=== PATIENT | male | born 1950 | race Caucasian/White ===

== ENCOUNTER 2018-10-09 16:01 | Inpatient (IN) | payer MEDICARE ==
[~2018-10-09] VITALS: Ht 167.6 cm; Wt 62.1 kg
--- NOTE | 2018-10-09 16:05 | NUR ---
ED Nurse Note: Patient brought into ED by [facility] from [facility], patient has been having poor oral intake and weight loss noted and Dr. Mary, the primary doctor wanted the patient for evaluation,.
[2018-10-09] MEDS ORDERED: ATORVASTATIN CA20 MG ORAL (16:30)
[2018-10-09] MEDS ORDERED: CATAPRES0.1 MG ORAL (16:30)
[2018-10-09] MEDS ORDERED: MULTIVITAMINS1 EAC8 ORAL (16:30)
[2018-10-09] MEDS ORDERED: FERROUS SULFAT325 MG ORAL (16:30)
[2018-10-09] MEDS ORDERED: VITAMIN C500 M1 ORAL (16:30)
[2018-10-09] MEDS ORDERED: NOVOLOG100 UNITS1 (16:30)
[2018-10-09] MEDS ORDERED: DOCUSATE SODIU100 MG ORAL (16:30)
[2018-10-09] MEDS ORDERED: OXYBUTYNIN CHLOR5 M1 ORAL (16:30)
[2018-10-09] MEDS ORDERED: ELIQUIS5 MG PO (16:30)
[2018-10-09] MEDS ORDERED: ACIDOPHILUS1 EAC6 PO (16:30)
--- NOTE | 2018-10-09 17:05 | Diagnostic Imaging Report ---
Indication: Shortness of breath Technique: One view of the chest Comparison: none Findings: There is mild elevation of the right hemidiaphragm. The lungs and pleural spaces are clear. The heart size is normal Impression: Negative
[2018-10-09 17:09] LABS: BASOPHILS % (AUTO) 1.5 % (0.0-2.0); EOSINOPHILS % (AUTO) 1.3 % (0.0-3.0); HEMOGLOBIN 13.7 G/DL (14.2-18.0); LYMPHOCYTES % (AUTO) 30.4 % (20.0-45.0); MEAN CORPUSCULAR VOLUME 82 FL (80-99); MONOCYTES % (AUTO) 7.9 % (1.0-10.0); NEUTROPHILS % (AUTO) 58.9 % (45.0-75.0); PLATELET COUNT 227 K/UL (150-450); RED BLOOD COUNT 5.14 M/UL (4.70-6.10); RED CELL DISTRIBUTION WIDTH 13.6 % (11.6-14.8); WHITE BLOOD COUNT 7.2 K/UL (4.8-10.8)
[2018-10-09 17:10] LABS: APPEARANCE,URINE CLEAR; BILIRUBIN, URINE NEGATIVE (NEGATIVE); GLUCOSE, URINE (UA) NEGATIVE (NEGATIVE); KETONES,URINE NEGATIVE (NEGATIVE); LEUKOCYTE ESTERASE ,URINE 3+ (NEGATIVE); NITRITE,URINE POSITIVE (NEGATIVE); PH,URINE 5 (4.5-8.0); PROTEIN,URINE 1+ (NEGATIVE); UROBILINOGEN,URINE NORMAL MG/DL (0.0-1.0)
[2018-10-09 17:13] LABS: INR 1.1 (0.9-1.1)
[2018-10-09 17:14] LABS: COLOR,URINE YELLOW
[2018-10-09 17:18] LABS: ANION GAP 9 mmol/L (5-15); BLOOD UREA NITROGEN 21 mg/dL (7-18); CALCIUM 9.7 MG/DL (8.5-10.1); CARBON DIOXIDE 31 MMOL/L (21-32); CHLORIDE 104 MMOL/L (98-107); CREATININE 1.3 MG/DL (0.55-1.30); POTASSIUM 4.6 MMOL/L (3.5-5.1); SODIUM 143 MMOL/L (136-145)
[2018-10-09] MEDS ORDERED: cefTRIAXone 1 GM in NS 55 ML IVPB ONE (17:30)
[2018-10-09 17:31] LABS: ALANINE AMINOTRANSFERASE 15 U/L (12-78); ALBUMIN 3.6 G/DL (3.4-5.0); ALBUMIN/GLOBULIN RATIO 0.9 (1.0-2.7); ALKALINE PHOSPHATASE 126 U/L (46-116); ASPARTATE AMINO TRANSFERASE 12 U/L (15-37); BILIRUBIN,TOTAL 0.3 MG/DL (0.2-1.0); CKMB < 0.5 NG/ML (0.0-3.6); CREATINE KINASE 27 U/L (26-308)
[2018-10-09 18:04] VITALS: BP 137/70
[2018-10-09] MEDS ORDERED: ACETAMINOPHEN325 M1 ORAL ×2 (18:07)
--- NOTE | 2018-10-09 18:30 | NUR ---
ED Nurse Note: report given to Franki SHORT at 3E. per Franki RN, the room is not ready and needs 10 minutes
--- NOTE | 2018-10-09 18:55 | NUR ---
NURSE NOTES: Received patient from ER in stable condition. Alert and oriented x2. No complain of pain or distress at this time. Skin intact and dry. IV dressing intact and dry. Belonging checked. Bed lowest position. Call light within reach. Will continue to monitor.
--- NOTE | 2018-10-09 19:23 | NUR ---
HAND-OFF: Report given to Osmar SHORT. Patient in stable condition.
[2018-10-09 20:00] VITALS: BP 132/79
[2018-10-09] MEDS ORDERED: Zolpidem 5mg tab ORAL PRN (20:00)
--- NOTE | 2018-10-09 20:14 | NUR ---
NURSE NOTES: Admitted patient awake,verbal,resting in bed.Admitting orders given by Dr Mary thru telephone.
[2018-10-09] MEDS: NovoLOG Insulin Flexpen SUBQ SCH (21:34)
--- NOTE | 2018-10-09 21:45 | NUR ---
NURSE NOTES: Left heel DTI checked as reported from [facility].There is no redness nor discoloration noted as witnessed by Flori Feliz RN. Left heel padded with optifoam and wrapped with kerlex lloyd for protection. Addendum: 10/10/18 at 0723 by BETH VERONICA RN DTI on left heel noted,picture to be taken by AM shift Nurse Adelaide and Charge Nurse Shaun.
--- NOTE | 2018-10-09 23:44 | Emergency Room Report ---
History of Present Illness General Chief Complaint: Generalized Weakness Source: Medical Record Present Illness HPI Is a 67-year-old male sent [facility] by [facility] after increased generalized weakness and decreased oral intake. Patient was noted to have prior history of some chronic neurologic condition. He was noted to be somewhat debilitated and weak. Reportedly had been not eating well. Patient had reportedly been losing weight. Patient states that he is followed by Dr. Javi Mary. Allergies: Coded Allergies: No Known Allergies (Unverified , 10/09/18) Patient History Past Medical History: see triage record Reviewed Nursing Documentation: PMH: Agreed; PSxH: Agreed Nursing Documentation-PMH Hx Diabetes: Yes Hx Cancer: No Hx Gastrointestinal Problems: No Hx Neurological Problems: No Review of Systems All Other Systems: limited - By poor historian Physical Exam Vital Signs Date Time Temp Pulse Resp B/P (MAP) Pulse Ox O2 Delivery O2 Flow Rate FiO2 10/09/18 15:57 98.1 65 15 128/67 95 Room Air Sp02 EP Interpretation: reviewed, normal General Appearance: normal inspection, alert, thin, Chronically Ill Head: atraumatic Eyes: bilateral eye PERRL ENT: normal voice, dry mucus membranes Neck: normal inspection, full range of motion, supple, no bony tend, limited range of motion Respiratory: normal inspection, no respiratory distress, no retraction, no wheezing Cardiovascular #1: regular rate, rhythm, no edema Gastrointestinal: normal inspection, normal bowel sounds, non tender, soft, no guarding, no hernia Genitourinary: no CVA tenderness Musculoskeletal: normal inspection, back normal, normal range of motion Neurologic: normal inspection, alert, responsive, speech normal, motor weakness Psychiatric: depressed affect Skin: normal inspection, normal color, no rash Medical Decision Making Diagnostic Impression: Primary Impression: Failure to thrive in adult Additional Impression: Urinary tract infection ER Course Patient presented for generalized weakness. Differential diagnosis included was not limited to anemia, urinary tract infection, electrolyte abnormality, hypothyroidism, myocardial infarction, myasthenia gravis, dehydration, among others. Because of complexity of patient's case laboratory testing and imaging studies were ordered. Patient was noted to have generalized weakness. Laboratory testing was unremarkable. Patient will require further workup of generalized weakness and weight loss. Dr. Javi Mary was contacted for inpatient management due to primary care physician. Labs Test 10/09/18 16:40 10/09/18 16:47 White Blood Count 7.2 K/UL (4.8-10.8) Red Blood Count 5.14 M/UL (4.70-6.10) Hemoglobin 13.7 G/DL (14.2-18.0) Hematocrit 42.0 % (42.0-52.0) Mean Corpuscular Volume 82 FL (80-99) Mean Corpuscular Hemoglobin 26.7 PG (27.0-31.0) Mean Corpuscular Hemoglobin Concent 32.7 G/DL (32.0-36.0) Red Cell Distribution Width 13.6 % (11.6-14.8) Platelet Count 227 K/UL (150-450) Mean Platelet Volume 4.8 FL (6.5-10.1) Neutrophils (%) (Auto) 58.9 % (45.0-75.0) Lymphocytes (%) (Auto) 30.4 % (20.0-45.0) Monocytes (%) (Auto) 7.9 % (1.0-10.0) Eosinophils (%) (Auto) 1.3 % (0.0-3.0) Basophils (%) (Auto) 1.5 % (0.0-2.0) Prothrombin Time 11.9 SEC (9.30-11.50) Prothromb Time International Ratio 1.1 (0.9-1.1) Activated Partial Thromboplast Time 27 SEC (23-33) Sodium Level 143 MMOL/L (136-145) Potassium Level 4.6 MMOL/L (3.5-5.1) Chloride Level 104 MMOL/L (98-107) Carbon Dioxide Level 31 MMOL/L (21-32) Anion Gap 9 mmol/L (5-15) Blood Urea Nitrogen 21 mg/dL (7-18) Creatinine 1.3 MG/DL (0.55-1.30) Estimat Glomerular Filtration Rate 55.4 mL/min (>60) Glucose Level 123 MG/DL (74-106) Lactic Acid Level 1.20 mmol/L (0.4-2.0) Calcium Level 9.7 MG/DL (8.5-10.1) Total Bilirubin 0.3 MG/DL (0.2-1.0) Aspartate Amino Transf (AST/SGOT) 12 U/L (15-37) Alanine Aminotransferase (ALT/SGPT) 15 U/L (12-78) Alkaline Phosphatase 126 U/L (46-116) Total Creatine Kinase 27 U/L (26-308) Creatine Kinase MB < 0.5 NG/ML (0.0-3.6) Creatine Kinase MB Relative Index 1.8 Troponin I 0.000 ng/mL (0.000-0.056) Total Protein 7.7 G/DL (6.4-8.2) Albumin 3.6 G/DL (3.4-5.0) Globulin 4.1 g/dL Albumin/Globulin Ratio 0.9 (1.0-2.7) Lipase 362 U/L (73-393) Urine Color Yellow Urine Appearance Clear Urine pH 5 (4.5-8.0) Urine Specific [place] 1.020 (1.005-1.035) Urine Protein 1+ (NEGATIVE) Urine Glucose (UA) Negative (NEGATIVE) Urine Ketones Negative (NEGATIVE) Urine Blood 1+ (NEGATIVE) Urine Nitrite Positive (NEGATIVE) Urine Bilirubin Negative (NEGATIVE) Urine Urobilinogen Normal MG/DL (0.0-1.0) Urine Leukocyte Esterase 3+ (NEGATIVE) Urine RBC 2-4 /HPF (0 - 0) Urine WBC 5-10 /HPF (0 - 0) Urine Squamous Epithelial Cells None /LPF (NONE/OCC) Urine Bacteria Moderate /HPF (NONE) Last Vital Signs Date Time Temp Pulse Resp B/P (MAP) Pulse Ox O2 Delivery O2 Flow Rate FiO2 10/09/18 21:45 Room Air 10/09/18 20:00 99.2 68 18 132/79 (96) 10/09/18 18:04 98 Status: unchanged Disposition: ADMITTED INPATIENT Condition: Stable Referrals: Heriberto Mary MD (PCP) Charles Landin MD Oct 09, 2018 23:44
[2018-10-10] VITALS: BP 144/68
--- NOTE | 2018-10-10 00:31 | History and Physical Report ---
DATE OF ADMISSION: 10/09/2018 NOTE: "VERY POOR AUDIO QUALITY" HISTORY OF PRESENT ILLNESS: This is a 57-year-old white male who came from [facility]. There, he has been having cough with sputum production and has poor appetite for a month, progressively worse. He had significant amount of weight loss. The patient is otherwise alert slightly confused. PAST MEDICAL HISTORY: Hypertension, renal insufficiency, dementia, depression, and dysphagia. MEDICATIONS: See the list. ALLERGIES: NKA. FAMILY HISTORY: Noncontributory. SOCIAL HISTORY: He lives at a correction, mostly bedridden. REVIEW OF SYSTEMS: Generalized weakness, fatigue, and cough with sputum production. PHYSICAL EXAMINATION: GENERAL: This is an elderly white male, currently in the bed. VITAL SIGNS: Blood pressure is 130/70, pulse 72 , respirations 18 to 24, and temperature, no fever. SKIN: Slightly dry. HEENT: NAD. CHEST: Bilaterally few wheezing and crackles. CARDIOVASCULAR: no gallop, no murmur. ABDOMEN: Soft. EXTREMITIES: No CCE. NEUROLOGIC: Generalized weakness. ASSESSMENT: 1. Failure to thrive. 2. Acute bronchitis. 3. Hypertension. 4. Weight loss. PLAN: 1. We will admit on medical floor. 2. We will start IV fluids, bronchodilator treatment, IV steroids, and antibiotics. 3. Consider pulmonary consult. Javi Mary M.D. DR: ELIEZER JOB#: [id number] CC:
[2018-10-10 04:00] VITALS: BP 126/76
[2018-10-10] MEDS: NovoLOG Insulin Flexpen SUBQ SCH ×4 (05:37→21:06)
--- NOTE | 2018-10-10 07:24 | NUR ---
HAND-OFF: Report given to DEJA Pinto.
--- NOTE | 2018-10-10 07:30 | NUR ---
NURSE NOTES: Pt new admit from [facility]. Left heel reddened. Offloaded. Will follow with primary and facility protocol . Denies pain to site as this time
[2018-10-10 08:00] VITALS: BP 137/73
[2018-10-10] MEDS: Multivitamin w/Minerals tab ORAL SCH (10:04)
[2018-10-10] MEDS: Oxybutynin 5mg tab ORAL SCH (10:04)
[2018-10-10] MEDS: Ascorbic Acid 500mg tab ORAL SCH ×2 (10:04→18:10)
[2018-10-10] MEDS: Docusate 100mg cap ORAL SCH (10:04)
--- NOTE | 2018-10-10 10:33 | NUR ---
NURSE NOTES: Microbiology phoned in regards to blood culture gram variable rods, Dr Mary paged at
[2018-10-10 12:00] VITALS: BP 122/71
--- NOTE | 2018-10-10 12:21 | NUR ---
RD ASSESSMENT & RECOMMENDATIONS SEE CARE ACTIVITY FOR COMPLETE ASSESSMENT DAILY ESTIMATED NEEDS: Needs based on DM, cardiac 62kg 25-30 kcals/kg 0951-7644 total kcals 1-1.5 g protein/kg 62-93 g total protein 25-30 mL/kg 5378-9241 total fluid mLs NUTRITION DIAGNOSIS: Increased kcal and protein needs r/t wasting, suspected wt loss as evidenced by pt adm w/ FTT, decreased po intake, presents w/ generalized mild to moderate wasting. CURRENT DIET: CCHO MED/ SURENDRA ms ground + Boost daily PO DIET RECOMMENDATIONS: LOW NA DIET / CCHO MED (texture per [employer]ES [employer]NABLEMENT LEAD) ADDITIONAL RECOMMENDATIONS: 1) [employer]AD for texture upgrade for improved food acceptance 2) Add GLUCERNA 1 tetra chapis BID in b/w meals 3) Consider Kcal count for eval 4) TXR PT TO BED W/ SCALE 5) Weekly wts: FTT dx
--- NOTE | 2018-10-10 12:38 | NUR ---
NURSE NOTES: Second called placed to Dr Jorge A Mary in regards to blood culture results. Will follow up
--- NOTE | 2018-10-10 13:18 | Cardiology Report ---
APPROVED REPORT EKG Measurement Heart [id number] Sinus bradycardia Cannot rule out Inferior infarct, age undetermined Abnormal ECG
[2018-10-10 16:00] VITALS: BP 124/69
--- NOTE | 2018-10-10 16:30 | NUR ---
CASE MANAGEMENT:REVIEW 67 YR OLD MALE BIBA FROM [facility]; POOR ORAL INTAKE AND WEIGHT LOSS SI:FTT. UTI 98.1 65 15 128/67 95% ON RA BUN+21 GLUCOSE+123 IS: IV ROCEPHIN CHEST XRAY BLOOD CX : TO MED/SURG 3 EAST IS: IVF@100/HR
--- NOTE | 2018-10-10 16:40 | NUR ---
NURSE NOTES: Pt had episode of incontinent times 3 .. Require care for incontinence of bowel . Bx is child like communicates with hand gestures. Is able to answer questions appropriately. Bed is in safe position. Call light is in reach. Heel will be offloaded due to presence of DTI to left heel. Pt does reposition self in bed.
[2018-10-10] MEDS: cefTRIAXone 1 GM in D5W 55 ML IVPB SCH (18:10)
--- NOTE | 2018-10-10 19:30 | NUR ---
HAND-OFF: Report given to .Kevin SHORT
--- NOTE | 2018-10-10 19:35 | NUR ---
NURSE NOTES: Received report from Soo Sam RN. Patient in bed asleep with no S/S of acute distress at this time. Kept clean, dry and comfortable in bed, with IV line intact and patent. On RA tolerating well at 94-96 02. Safety precaution in place; siderails x3 up, call light within reach, bed in lowest position, brakes and alarm on at all times. Needs and wants anticipated and attended. Will continue plan of care and monitor for any changes noted.
[2018-10-10 20:00] VITALS: BP 118/67
--- NOTE | 2018-10-10 22:16 | Progress Note ---
DATE: 10/10/2018 SUBJECTIVE: This is an elderly male, who has generalized weakness. Blood pressure was slightly high. Feeling weak. OBJECTIVE: VITAL SIGNS: Blood pressure is 137/73, pulse 80, respirations 17, and temp is 98.5. HEENT: NAD. CHEST: Bilaterally clear. CARDIOVASCULAR: Regular rhythm. ABDOMEN: Soft. EXTREMITIES: CCE. NEUROLOGICAL: The patient has generalized weakness. GENITOURINARY: Deferred. LABORATORY DATA: Hematology, white count 7.2, hemoglobin 14, hematocrit 42, and platelets are 227,000. Chemistry panel, BUN 21, creatinine 1.3, and glucose 123. Troponin is negative. His urine is showing positive nitrites. ASSESSMENT: 1. Urinary tract infection. 2. Dehydration. 3. Generalized weakness. 4. Failure to thrive. PLAN: We will currently continue antibiotics. Continue IV fluid. Continue Tylenol. Consider ID consult. Javi Mary M.D. DR: HARSHAD JOB#: [id number] CC:
[2018-10-11] VITALS: BP 125/65
[2018-10-11 04:00] VITALS: BP 119/81
[2018-10-11] MEDS: NovoLOG Insulin Flexpen SUBQ SCH ×4 (06:05→20:46)
--- NOTE | 2018-10-11 07:38 | NUR ---
HAND-OFF: Report given to Earl Matos RN. PAtient in stable condition resting in bed. Endorsed plan of care.
--- NOTE | 2018-10-11 07:50 | NUR ---
NURSE NOTES: Received patient on bed, asleep. IV intact and patent. Bed in low and locked position, call light in reach. No signs of respiratory distress or pain. Rom board updated, will continue to monitor.
[2018-10-11 08:00] VITALS: BP 139/70
[2018-10-11] MEDS: Oxybutynin 5mg tab ORAL SCH (09:21)
[2018-10-11] MEDS: Ascorbic Acid 500mg tab ORAL SCH (09:21)
[2018-10-11] MEDS: Multivitamin w/Minerals tab ORAL SCH (09:21)
[2018-10-11] MEDS: Docusate 100mg cap ORAL SCH ×3 (09:21→17:13)
--- NOTE | 2018-10-11 09:30 | NUR ---
NURSE NOTES: IV site leaking. Will attempt to start new one.
[2018-10-11 09:32] LABS: BASOPHILS % (AUTO) 0.9 % (0.0-2.0); HEMATOCRIT 40.4 % (42.0-52.0); HEMOGLOBIN 13.1 G/DL (14.2-18.0); LYMPHOCYTES % (AUTO) 21.9 % (20.0-45.0); MEAN CORPUSCULAR VOLUME 83 FL (80-99); MONOCYTES % (AUTO) 6.4 % (1.0-10.0); NEUTROPHILS % (AUTO) 69.8 % (45.0-75.0); PLATELET COUNT 204 K/UL (150-450); RED BLOOD COUNT 4.88 M/UL (4.70-6.10); RED CELL DISTRIBUTION WIDTH 14.3 % (11.6-14.8)
[2018-10-11 09:41] LABS: ANION GAP 7 mmol/L (5-15); BLOOD UREA NITROGEN 14 mg/dL (7-18); CALCIUM 8.9 MG/DL (8.5-10.1); CARBON DIOXIDE 28 MMOL/L (21-32); CHLORIDE 106 MMOL/L (98-107); POTASSIUM 3.8 MMOL/L (3.5-5.1); SODIUM 141 MMOL/L (136-145)
[2018-10-11 09:51] LABS: ALANINE AMINOTRANSFERASE 17 U/L (12-78); ALBUMIN 3.2 G/DL (3.4-5.0); ALBUMIN/GLOBULIN RATIO 0.9 (1.0-2.7); ALKALINE PHOSPHATASE 114 U/L (46-116); ASPARTATE AMINO TRANSFERASE 12 U/L (15-37); BILIRUBIN,TOTAL 0.4 MG/DL (0.2-1.0); PHOSPHORUS 3.2 MG/DL (2.5-4.9)
--- NOTE | 2018-10-11 10:30 | NUR ---
NURSE NOTES: New IV started on right forearm, 22 gauge. Asymptomatic, patent and intact.
--- NOTE | 2018-10-11 11:00 | Consultation ---
Consult Note Consult Note asked to eval at the request of Dr Mary Is a 67-year-old male sent in by [facility] after increased generalized weakness and decreased oral intake. Patient was noted to have prior history of some chronic neurologic condition. He was noted to be somewhat debilitated and weak. Reportedly had been not eating well. Patient had reportedly been losing weight. Patient states that he is followed by Dr. Javi Mary. No Known Allergies (Unverified , 10/09/18) Hx Diabetes: Yes Assessment/Plan Elevated Cr , Dehydration- Resolved with Hydration UTI FTT down on IV fluids check renal parameters per orders Cam Harley MD Oct 11, 2018 11:00
[2018-10-11 11:38] LABS: CHOLESTEROL 146 MG/DL (< 200); CREATINE KINASE 29 U/L (26-308); FERRITIN 51 NG/ML (8-388); HDL CHOLESTEROL 28 MG/DL (40-60); TRIGLYCERIDES 335 MG/DL (30-150)
[2018-10-11 12:00] VITALS: BP 139/75
[2018-10-11 12:10] LABS: % IRON SATURATION 18 % (15-50); IRON 42 ug/dL (50-175); TOTAL IRON BINDING CAPACITY 234 ug/dL (250-450)
[2018-10-11] MEDS: D5 1/2NS w/KCl 20mEq 1,000 ML IV SCH (12:42)
[2018-10-11 16:00] VITALS: BP 130/70
[2018-10-11] MEDS: cefTRIAXone 1 GM in D5W 55 ML IVPB SCH (17:14)
--- NOTE | 2018-10-11 19:29 | NUR ---
HAND-OFF: Report given to RN Marguerite.
--- NOTE | 2018-10-11 19:37 | NUR ---
NURSE NOTES: Pt received awake, call light within reach, bed in lowest position, IV in place fluids running, will continue to monitor.
[2018-10-11 20:00] VITALS: BP 146/75
[2018-10-12] VITALS: BP 137/66
[2018-10-12 04:00] VITALS: BP 128/67
[2018-10-12] MEDS: NovoLOG Insulin Flexpen SUBQ SCH ×4 (06:13→20:37)
--- NOTE | 2018-10-12 07:35 | NUR ---
HAND-OFF: Report given to DEJA Santos.
[2018-10-12 08:00] VITALS: BP 110/80
--- NOTE | 2018-10-12 08:12 | NUR ---
NURSE NOTES: during shift change patient asleep but arosable for name bed on low position, patient education reinforced not to get out of bed with out assist, bed alarm on will continue to monitor.
--- NOTE | 2018-10-12 09:00 | NUR ---
NURSE NOTES: Patient transferred to striker bed alarm on
[2018-10-12] MEDS: Oxybutynin 5mg tab ORAL SCH (09:24)
[2018-10-12] MEDS: Docusate 100mg cap ORAL SCH ×3 (09:24→17:28)
[2018-10-12] MEDS: Multivitamin w/Minerals tab ORAL SCH (09:24)
[2018-10-12] MEDS: D5 1/2NS w/KCl 20mEq 1,000 ML IV SCH (09:24)
[2018-10-12 12:00] VITALS: BP 134/75
--- NOTE | 2018-10-12 13:26 | Nephrology Progress Note ---
Assessment/Plan Problem List: (1) Failure to thrive in adult (2) Urinary tract infection (3) High triglycerides (4) DM (diabetes mellitus) Assessment Elevated Cr , Dehydration- Resolved with Hydration UTI FTT elevated A1c High Triglycerides Plan down on IV fluids check renal parameters per orders Subjective ROS Limited/Unobtainable: No Constitutional: Reports: malaise Objective Objective Last 24 Hour Vital Signs Date Time Temp Pulse Resp B/P (MAP) Pulse Ox O2 Delivery O2 Flow Rate FiO2 10/12/18 09:00 Room Air 10/12/18 08:00 98.0 80 19 110/80 (90) 95 10/12/18 04:00 97.9 70 18 128/67 (87) 96 10/12/18 00:00 97.8 79 18 137/66 (89) 96 10/11/18 21:00 Room Air 10/11/18 20:00 98.1 77 18 146/75 (98) 97 10/11/18 16:00 97.9 72 19 130/70 (90) 95 Intake and Output 10/11/18 10/12/18 19:00 07:00 Intake Total 305 ml 1080 ml Output Total 320 ml Balance 305 ml 760 ml Intake Oral 480 ml IV Total 305 ml 600 ml Output Urine Total 320 ml # Voids 4 Height (Feet): 5 Height (Inches): 6.00 Weight (Pounds): 137 General Appearance: no apparent distress Neck: non-tender Cardiovascular: normal rate Respiratory/Chest: lungs clear Abdomen: soft Cam Harley MD Oct 12, 2018 13:26
[2018-10-12 16:31] VITALS: BP 130/69
[2018-10-12] MEDS: cefTRIAXone 1 GM in D5W 55 ML IVPB SCH (17:29)
--- NOTE | 2018-10-12 18:50 | NUR ---
NURSE NOTES: Patient confused constantly trying to get out of bed bed alarm on and RN placed condom catheter to minimize the discomfort and avoid skin irritation patient unable to keep it took the condom out.
--- NOTE | 2018-10-12 19:01 | NUR ---
HAND-OFF: Report given to DEJA Everett patient awake alert stable condition.
--- NOTE | 2018-10-12 19:19 | NUR ---
NURSE NOTES: Pt received awake, alert, talkative, call light within reach, no signs of distress or c/o pain. IV fluids running, will continue to monitor.
[2018-10-12 20:00] VITALS: BP 144/73
--- NOTE | 2018-10-12 21:46 | Progress Note ---
SUBJECTIVE: This is an elderly male, currently confused, eating better. OBJECTIVE: VITAL SIGNS: Blood pressure 130/69, pulse 88. No fever. CHEST: Bilaterally clear. CARDIOVASCULAR: Regular rhythm. ABDOMEN: Soft. EXTREMITIES: CCE. ASSESSMENT: 1. Abdominal pain. 2. Urinary tract infection. 3. Dehydration. 4. Failure to thrive. PLAN: Continue antibiotic, bronchodilator treatment. Continue current treatment. See dietary consult. Javi Mary M.D. DR: Andrzej JOB#: [id number] CC:
[2018-10-13 00:08] VITALS: BP 141/75
[2018-10-13 04:00] VITALS: BP 147/79
[2018-10-13] MEDS: D5 1/2NS w/KCl 20mEq 1,000 ML IV SCH (04:56)
[2018-10-13] MEDS: NovoLOG Insulin Flexpen SUBQ SCH ×3 (05:49→17:17)
--- NOTE | 2018-10-13 07:27 | NUR ---
HAND-OFF: Report given to DEJA Bentley.
--- NOTE | 2018-10-13 07:30 | NUR ---
NURSE NOTES: Received report from Shelby SHORT. During rounds patient is awake alert and oriented x1, no acute distress noted. Sitting up in bed eating breakfast. Reporting no pain at this time. Side rails upx3, bed low and locked, call light in reach. Fall precautions maintained, bed alarm armed. Will continue to monitor.
[2018-10-13 08:00] VITALS: BP 136/75
[2018-10-13] MEDS: Multivitamin w/Minerals tab ORAL SCH (08:49)
[2018-10-13] MEDS: Oxybutynin 5mg tab ORAL SCH (08:49)
[2018-10-13] MEDS: Docusate 100mg cap ORAL SCH ×3 (10:22→18:10)
[2018-10-13 12:00] VITALS: BP 150/100
--- NOTE | 2018-10-13 12:05 | Nephrology Progress Note ---
Assessment/Plan Problem List: (1) Failure to thrive in adult (2) Urinary tract infection (3) High triglycerides (4) DM (diabetes mellitus) Assessment Elevated Cr , Dehydration- Resolved with Hydration UTI FTT elevated A1c High Triglycerides Plan down on IV fluids check renal parameters per orders ? DC pn PO antibiotics/ Subjective ROS Limited/Unobtainable: No Objective Objective Last 24 Hour Vital Signs Date Time Temp Pulse Resp B/P (MAP) Pulse Ox O2 Delivery O2 Flow Rate FiO2 10/13/18 08:00 97.4 72 19 136/75 (95) 96 10/13/18 04:00 97.8 78 20 147/79 (101) 98 10/13/18 00:08 97.1 80 20 141/75 (97) 95 10/12/18 21:00 Room Air 10/12/18 20:00 98.4 83 20 144/73 (96) 94 10/12/18 16:31 97.2 88 19 130/69 (89) 95 Intake and Output 10/12/18 10/13/18 18:59 06:59 Intake Total 200 ml 620 ml Balance 200 ml 620 ml Intake Oral 200 ml 120 ml IV Total 500 ml # Voids 3 3 # Bowel Movements 1 Height (Feet): 5 Height (Inches): 6.00 Weight (Pounds): 137 General Appearance: no apparent distress Objective no change Cam Harley MD Oct 13, 2018 12:04
--- NOTE | 2018-10-13 14:47 | NUR ---
NURSE NOTES: Received order to discharge patient primary RN and CM notified.
--- NOTE | 2018-10-13 14:51 | NUR ---
*-* DISCHARGE PLANNING *-* PATIENT HAS BEEB REFERRED BACK TO: [facility] P:[phone] F:[phone]
--- NOTE | 2018-10-13 15:23 | NUR ---
*-* DISCHARGE PLANNED *-* PATIENT IS DISCHARGED TO: [facility] ROOM# 405-B SKILLED T:[phone] FOR NURSE TO NURSE REPORT [facility] HAS BEEN ARRANGED FOR RN PACU AT 1730 S/W PAUL [phone]
[2018-10-13 16:00] VITALS: BP 134/70
[2018-10-13] MEDS: cefTRIAXone 1 GM in D5W 55 ML IVPB SCH (17:17)
--- NOTE | 2018-10-13 17:48 | NUR ---
NURSE NOTES: Called and gave report to Obi RN at [facility].
--- NOTE | 2018-10-13 19:48 | NUR ---
NURSE NOTES: Patient discharged. No acute distress on discharge. VS assessed by ambulance personnel and stable. Patient sent with belongings. Discharge packet given to ambulance personnel. Patient transferred safely to [facility]. IV removed intact. Escorted off unit by ambulance personnel at 1940.
--- NOTE | 2018-10-14 12:33 | Discharge Summary ---
Discharge Summary Discharge Summary _ DATE OF ADMISSION: 10/09/2018 DATE OF DISCHARGE: 10/13/2018 DISCHARGED BY: Dr. Mary REASON FOR ADMISSION: 57 years old male with past medical history of diabetes mellitus, dementia, depression , hypertension , renal insufficiency , [facility] due to generalized weakness and decreased oral intake. Upon evaluation vital signs were stable. Laboratory workup revealed no leukocytosis, hemoglobin 13.7, hematocrit 42. Lactic acid 1.2. BUN 21 , creatinine 1.3. Stable electrolytes, stable LFT . CK 27. Urinalysis revealed evidence of probable UTI. Chest x-ray revealed no acute cardiopulmonary pathology Patient was admitted for further management. 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 Harley HOSPITAL COURSE: Patient admitted to medical surgical floor. Patient started on IV hydration and empiric antibiotic. Supplemental oxygen provided as needed to keep pulse oximetry above 92%. Pulmonary toilet with bronchodilator provided. Patient started on empiric antibiotics Rapid influenza screen test was negative. Urine culture revealed E. coli. Patient was on antibiotic for UTI. Blood sugar was managed with sliding scale of insulin. Hemoglobin A1c -6.6, at goal. Renal parameters and electrolytes were closely monitored, electrolytes corrected as needed , and nephrotoxins were avoided. BUN from 21 down to 14 creatinine from 1.3 down to 1.0. Dehydration resolved with IV hydration. Nutritional assessment revealed high nutritional risk. Chief Meter Reader recommendation implemented in plan of care. Lipid panel revealed elevated triglycerides with stable total cholesterol and LDL. Low HDL noted as well. Patient started on fish oil. Recommended to consider gemfibrozil . Diet changed to low-fat low-cholesterol diet. Hemoglobin and hematocrit were closely monitored with goal to keep hemoglobin above 7. Hemoglobin remained stable, prior to discharge 13.1, hematocrit 40.4. Anemia workup was consistent with anemia of chronic disease, stable B12 and folate. Patient clinically stabilized and was ready for discharge to [facility] continuation of care. FINAL DIAGNOSES: UTI with E. coli Failure to thrive probably due to protein calorie malnutrition , dehydration and UTI Dehydration -resolved Anemia Bronchitis Hypertriglyceridemia DISCHARGE MEDICATIONS: See Medication Reconciliation list. DISCHARGE INSTRUCTIONS: Patient was discharged to the [facility]. Follow up with medical doctor at the facility. I have been assigned to dictate discharge summary for this account. I was not involved in the patient's management. Joellen Blum NP Oct 14, 2018 12:33
--- NOTE | 2018-10-14 17:15 | Discharge Summary ---
DATE OF ADMISSION: 10/09/2018 DATE OF DISCHARGE: 10/13/2018 HOSPITAL COURSE: This is an elderly male who came to the hospital for generalized weakness, dehydration, and urinary tract infection. The patient currently has been doing better in the hospital course. He has been eating fine and generalized weakness is improving. The [facility] at [facility]. DISCHARGE DIAGNOSES: 1. Urinary tract infection. 2. Failure to thrive. 3. Dehydration. 4. Hypertension. 5. Dysphagia. PLAN: We will continue current treatment. Discharge plan to SNF. Javi Mary M.D. DR: HARSHAD JOB#: [id number] CC:
== END 2018-10-13 19:40 | DRG 690 ==
LOC: EDBD 16:01 → EMR 16:41 → 3E 17:49 → EDBD 17:49 → EDBEDREQ 18:08 → 3E 10-12 12:40
DX: N39.0 Urinary tract infection, site not specified (principal); E46 Unspecified protein-calorie malnutrition; E86.0 Dehydration; I10 Essential (primary) hypertension; B96.20 Unspecified Escherichia coli [E. coli] as the cause of diseases classified elsewhere; R62.7 Adult failure to thrive; D64.9 Anemia, unspecified; J40 Bronchitis, not specified as acute or chronic; E78.1 Pure hyperglyceridemia; F03.90 Unspecified dementia, unspecified severity, without behavioral disturbance, psychotic disturbance, mood disturbance, and anxiety; F32.9 Major depressive disorder, single episode, unspecified; R13.10 Dysphagia, unspecified; E11.9 Type 2 diabetes mellitus without complications
CPT/HCPCS: 36415; 71045; 80053; 80061; 81003; 82550; 82553; 82607; 82728; 82746; 82962; 83036; 83540; 83550; 83605; 83690; 83735; 83880; 84100; 84484; 84550; 85025; 85610; 85730; 86140; 86710; 87040; 87081; 87086; 87181; 93005; 96365; 99285; J1815